=== PATIENT | female | born 1965 | race Asian ===

== ENCOUNTER → 2016-04-18 | Outpatient (CLI) | payer OTHER ==
--- NOTE | 2016-04-18 18:34 | MA ---
Bilateral Digital Screening Mammography Clinical History: 50-year-old female with no family history of breast cancer, who presents for routin e annual mammographic screening. Technique: Digital CC and MLO views of each breast are compared with previous studies dated December 07, 2014, 12/03/13, December 01, 2012, and October 29, 2011. Additionally, the exam is iCAD checked. Breast Density: Type C. CAD Evaluation: Negative. Findings: There is a heterogeneously dense residual glandular pattern, which is unchanged. There is n o focal neodensity or interim architectural distortion. There are no suspicious clustered microcalcif ications. Impression: Negative mammography. BIRADS category one. Recommendation: Routine annual mammographic screening. [facility] will send a result letter to the patient. Negative mammography should not preclude additional workup of a clinically suspicious finding. The patient's information is entered into a reminder system with a target due date for her next mammo gram.
== END ==
LOC: CIMAGING 12:13
DX: Z12.31 Encounter for screening mammogram for malignant neoplasm of breast (principal)
CPT/HCPCS: G0202

== ENCOUNTER → 2017-05-21 | Outpatient (CLI) | payer OTHER | LOC: CIMAGING 10:50 | PROVIDERS: ATTEND Family Medicine | DX: Z12.31 Encounter for screening mammogram for malignant neoplasm of breast (principal) ==